=== PATIENT | male | born 2000 | race Caucasian/White ===

== ENCOUNTER 2020-06-21 21:23 | Emergency (ER) | payer OTHER ==
[~2020-06-21] VITALS: Ht 182.9 cm; Wt 78.0 kg
[2020-06-21 21:30] VITALS: BP_SYST 128
[2020-06-21] MEDS ORDERED: AZITHROMYCIN 250 MG TABLET PO ONE (21:45)
[2020-06-21] MEDS ORDERED: cefTRIAXone 250 MG in LIDOCAINE 1%, 20 ML MDV 0.9 ML IM ONE (21:45)
[2020-06-21 22:05] VITALS: BP_SYST 128
== END 2020-06-21 22:05 | disposition home or self-care (01) ==
LOC: SED 21:23
DX: A74.9 Chlamydial infection, unspecified (principal)
CPT/HCPCS: 87491; 87591; 96372; 99283; J0696; J2001; Q0144